=== PATIENT | female | born 2000 | race American Indian/Alaskan Native ===

== ENCOUNTER 2020-03-16 10:20 | Emergency (ER) | payer SELFPAY ==
[2020-03-16 13:34] VITALS: BP 151/101
--- NOTE | 2020-03-16 13:39 | Emergency Department Report ---
ED General Adult HPI - General Chief complaint: Extremity Injury, Lower Stated complaint: CRAMPING, RIGHT CALF PAIN Time Seen by Provider: 03/16/20 12:27 Source: patient Mode of arrival: Ambulatory Limitations: No Limitations ED Review of Systems ROS: Stated complaint: CRAMPING, RIGHT CALF PAIN Other details as noted in HPI ED Past Medical Hx - Past Medical History Previous Medical History?: No - Surgical History Past Surgical History?: No - Social History Smoking Status: Current Every Day Smoker Substance Use Type: None ED Physical Exam - General Limitations: No Limitations ED Course Vital Signs 03/16/20 11:02 Temperature 98.2 F Pulse Rate 89 Respiratory 16 Rate Blood Pressure 162/101 O2 Sat by Pulse 99 Oximetry Critical care attestation.: If time is entered above; I have spent that time in minutes in the direct care of this critically ill patient, excluding procedure time. ED Disposition Clinical Impression: Right leg pain, Elevated blood pressure reading Disposition: DC-07 LEFT AGAINST MED ADVICE Is pt being admited?: No Condition: Stable Instructions: Hypertension (ED), Muscle Strain (ED) Referrals: PRIMARY CARE [Primary Care Provider] - 24 Hours Forms: Work/School Release Form(ED)
== END 2020-03-16 13:45 | disposition left against medical advice (07) ==
LOC: ED 10:20
DX: M79.604 Pain in right leg (principal); R03.0 Elevated blood-pressure reading, without diagnosis of hypertension; F17.200 Nicotine dependence, unspecified, uncomplicated
CPT/HCPCS: 99281